=== PATIENT | female | born 1995 | race Two or more races ===

== ENCOUNTER 2019-09-11 09:41 | Emergency (ER) | payer BC, MEDICAID, OTHER ==
[~2019-09-11] VITALS: Ht 170.2 cm; Wt 99.8 kg
[2019-09-11 09:46] VITALS: BP 131/81
[2019-09-11] MEDS ORDERED: IBUPROFEN 800 MG TAB PO ONE (10:15)
== END 2019-09-11 10:26 | disposition home or self-care (01) ==
LOC: ER 09:41
DX: H60.91 Unspecified otitis externa, right ear (principal)